=== PATIENT | male | born 1975 | race Caucasian/White ===

== ENCOUNTER 2017-04-12 20:45 | Emergency (ER) | payer BC ==
--- NOTE | 2017-04-12 21:32 | ERNOTE ---
Abdominal HPI - Narrative Date of Service: 04/12/17 - General Chief Complaint: Abdominal Pain Time Seen by Provider: 04/12/17 21:14 Source: patient Exam Limitations: no limitations - Immun/Allergies/Home Medications Immunizatons: IMMUNIZATION HX Immunizations Up to Date Yes Allergies/Adverse Reactions: Allergies No Known Allergies Allergy (Unverified 04/12/17 21:07) Home Medications: HOME MEDICATIONS ALPRAZolam [Xanax] 0.5 mg PO TID PRN 04/12/17 [Last Taken Unknown] Irbesartan [Avapro] 150 mg PO DAILY 04/12/17 [Last Taken Unknown] - History of Present Illness Narrative: For last two weeks patient has been noticing intermittent right low abdominal/ inguinal pain that seems to get worse with walking or standing. At times is more intense but always seems to get better by sitting or resting. Helped his son lift a heavy object just prior and has had a RIH repair as a . Denies any bowel or bladder changes. Pain does radiate at times down his inner upper thigh and toward his testicle. No urinary symptoms. Review of Systems - Review of Systems Constitutional: Present: no symptoms reported ENT: Present: no symptoms reported Respiratory: Present: no symptoms reported Cardiology: Present: no symptoms reported Gastrointestinal/Abdominal: Present: no symptoms reported Genitourinary: Present: no symptoms reported - Patient's Past Medical History Patient History - Medical: Anxiety Patient History - Cardiac/Respiratory: Hypertension Patient History - Cancer: No Hx of Cancer Patient History - Surgical Procedures: Ear Tubes, T & A, Hernia Repair Patient History - Other: None - Social History Living Situations: spouse Abuse History: No History of abuse Psych History: Hx of Anxiety Smoking Status: Never smoker Have you smoked in the past 12 months: No Do you dip or chew tobacco: Yes Alcohol Use: occasionally Drug Use: none - Immunizations Immunizations Up to Date: Yes Physical Exam - Physical Exam General Appearance: Present: wd/wn, alert, no apparent distress Gastrointestinal/Abdominal: Present: nontender, soft, no organomegaly, other - Slight tenderness over the ileoinguinal/femoral canal with deep palpation but no masses. Absent: hernia Male Genitals Exam: Present: normal genitalia, other - Right inguinal weakness but no hernia ED Progress - Vital Signs Vital Signs: Vital Signs 04/12/17 20:59 Temperature 37.0 C Pulse Rate 88 Respiratory 16 Rate Blood Pressure 127/86 O2 Sat by Pulse 97 Oximetry - Progress/Reassessment Chief Complaint: Abdominal Pain Plan - Plan Plan: With lack of physical findings will need CT scan but it is not emergent. He and his agreed and will seek PCP appointment tomorrow for outpatient CT Departure - Departure Clinical Impression: Right inguinal pain Disposition: Home self-care Instructions: Inguinal Hernia, Adult, [id number] Additional Instructions: Refrain from lifting, straining, prolonged standing or walking. Use alternating ibuprofen with tylenol every 3 hours. Follow up with PCP Referrals: SARA KAPOOR [Primary Care Provider] -
[2017-04-12 21:37] VITALS: BP 124/76
== END 2017-04-12 21:35 | disposition home or self-care (01) ==
LOC: ER 20:45
DX: R10.31 Right lower quadrant pain (principal); F41.9 Anxiety disorder, unspecified; I10 Essential (primary) hypertension